=== PATIENT | male | born 1955 | race Caucasian/White ===

== ENCOUNTER 2017-10-04 02:55 | Emergency (ER) | payer MEDICARE ==
[2017-10-04 03:05] VITALS: BP 151/85
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
[2017-10-04] MEDS ORDERED: CEPHALEXIN MONOHYDRATE 250 MG CAPSULE ONE (03:44)
[2017-10-04] MEDS: CEPHALEXIN MONOHYDRATE 250 MG CAPSULE PO ONE (03:46)
== END 2017-10-04 03:47 | disposition home or self-care (01) ==
LOC: ER 02:55
DX: L03.114 Cellulitis of left upper limb (principal); F17.200 Nicotine dependence, unspecified, uncomplicated